=== PATIENT | female | born 1970 | race African-American/Black ===

== ENCOUNTER 2018-03-08 11:28 | Observation (INO) | payer SELFPAY ==
[2018-03-08 12:02] LABS: #Eosinphils 0.1 thou/uL (0.0-0.7); #Lymphocytes 1.4 thou/uL (1.20-3.40); #Monocytes 0.5 thou/uL (0.11-0.59); %Basophils 0.9 % (0.0-1.0); %Eosinophils 1.9 % (0.0-10.0); %Monocytes 11.6 % (0.0-10.0); %Neutrophils 50.5 % (42.0-75.0); Hemoglobin 14.3 g/dL (12.0-16.0); Mean Corpuscular HGB CONC 33.4 g/dL (32.0-36.0); Mean Corpuscular Hemoglobin 30.7 pg (27.0-31.0); Mean Platelet Volume 7.7 fL (7.4-10.4); Platelet Count 232 thou/uL (130-400); RBC Distribution Width 12.2 % (11.5-14.5); Red Blood Cell (RBC) Count 4.67 mill/uL (4.20-5.40)
[2018-03-08] MEDS ORDERED: Nitroglycerin 2% Ointment 1 INCH/1 GM Packet ONE (12:02)
[2018-03-08 12:20] LABS: ALT (SGPT) 20 U/L (8-55); AST (SGOT) 22 U/L (5-34); Albumin 4.2 g/dL (3.5-5.0); Alkaline Phosphatase 75 U/L (40-150); Anion Gap 13 mmol/L (10-20); BUN (Urea Nitrogen) 17 mg/dL (7.0-18.7); Bilirubin, Total 0.4 mg/dL (0.2-1.2); CK (CPK) 95 U/L (29-168); Calc. Creatinine Clearance 0 mL/min (70-130); Carbon Dioxide 25 mmol/L (22-29); Chloride 106 mmol/L (98-107); Estimated GFR-MDRD 65; Globulin 3.2 g/dL (2.4-3.5); Glucose 99 mg/dL (70-105); Lipase 30 U/L (8-78); Potassium 4.5 mmol/L (3.5-5.1); Protein, Total 7.4 g/dL (6.0-8.3); Sodium 139 mmol/L (136-145)
[2018-03-08 12:24] LABS: CKMB 1.3 ng/mL (0-6.6); Troponin I Less than 0.010 ng/mL (< 0.028)
--- NOTE | 2018-03-08 12:31 | RAD ---
CHEST ONE VIEW: HISTORY: Dyspnea. Chest pain. COMPARISON: None. FINDINGS: The cardiac silhouette is magnified by projection. The pulmonary vasculature is unremarkable. The m ediastinum is midline. No lobar consolidation or evidence of pneumothorax. nuclear monitoring technician leads ov erly the chest. IMPRESSION: No active cardiopulmonary abnormalities demonstrated. POS: LEIGHANN
[2018-03-08 14:21] VITALS: BMI 26.5
[2018-03-08] MEDS ORDERED: Acetaminophen 325 MG TAB PO PRN (14:30)
[2018-03-08 15:37] LABS: Troponin I Less than 0.010 ng/mL (< 0.028)
[2018-03-08] MEDS ORDERED: Calcium Carbonate 500 MG ChewTAB PO PRN (17:03)
[2018-03-08] MEDS ORDERED: Nitroglycerin 0.4 MG TAB (25 Tab Bottle) PO PRN (17:04)
[2018-03-08] MEDS ORDERED: Nicotine 21 MG PATCH TD PRN (17:18)
[2018-03-08] MEDS ORDERED: Amlodipine 5 MG TAB PO SCH (17:30)
[2018-03-08 18:33] LABS: Troponin I Less than 0.010 ng/mL (< 0.028)
[2018-03-08] MEDS: Famotidine 20 MG TAB PO SCH (20:55)
--- NOTE | 2018-03-08 23:50 | HP ---
DATE OF SERVICE: 03/08/2018 CHIEF COMPLAINT: Chest pain. HISTORY OF PRESENT ILLNESS: This is a 47-year-old female with history of hypertension who is not currently on medications, GERD, anxiety, bipolar disorder, schizophrenia also not on medication, who presents to the emergency room complaining of chest pain. Patient reports that occurred around 10:00 last night, located in the lower sternum and to the left side with radiation to her right arm. She describes it as sharp and intermittent, lasting a few seconds, resolving and then returning. She states that she fell asleep and did not wake up with pain this morning. She denies any medications taken for this, denies any prior history, denies any shortness of breath, nausea, or vomiting. She did have a headache last night that also resolved this morning. In the emergency room, the patient received aspirin 324 mg, 1 inch of nitro paste, 500 mL of normal saline then Hospitalist called for admission. ALLERGIES: AMPICILLIN. CURRENT MEDICATIONS: None. PAST MEDICAL HISTORY: 1. Hypertension, has not been on medication for years and previously was on clonidine when she was in alf. 2. Gastroesophageal reflux disease. 3. History of crack cocaine abuse. She reports being clean for 6 months. 4. Anxiety. 5. Bipolar disorder. 6. Schizophrenia. SOCIAL HISTORY: The patient smokes 1 pack per day, uses alcohol occasionally, and again has been 6 months clean from crack cocaine. Surrogate decision maker is her , Jarvis and FULL CODE. FAMILY HISTORY: She denies any heart problems that run in the family. REVIEW OF SYSTEMS: Positive for headache as well as reflux symptoms, palpitations that are intermittent and present currently. Negative for any problems with her vision, any headache now. All remaining review of systems are reviewed and negative. PHYSICAL EXAMINATION: VITAL SIGNS: Blood [id number]/84, temperature 97.9, pulse 96, respirations 18 , saturations 93% on room air. GENERAL: Awake, alert, responsive, in no apparent distress, able to speak in full sentences. HEENT: Pupils equal, round, reactive to light. Extraocular movements intact. Oral mucosa is pink and moist. NECK: Supple, nontender. LYMPHATICS: No palpable cervical or supraclavicular lymphadenopathy. LUNGS: Clear to auscultation bilateral. No audible wheezing, rhonchi, or rales. HEART: Normal S1, S2, regular rate and rhythm, no audible murmurs. ABDOMEN: Soft with present bowel sounds. Nontender, nondistended. EXTREMITIES: No edema. SKIN: No rashes. NEUROLOGIC: No focal deficits. PSYCHIATRIC: Euthymic, linear, logical, goal-directed thought process. LABORATORY DATA: 1. CBC: 4, 14.3, 43, 232. 2. Chemistry: 139, 4.5, 106, 25, 17, 0.92. 3. LFTs negative. 4. Troponin x2 negative. 5. BNP 59.3. EKG sinus rhythm, normal axis, normal intervals, no ST changes, present LVH. Chest x-ray personally reviewed negative for acute change. IMPRESSION: 1. Atypical chest pain, patient with two cardiac risk factors of hypertension and tobacco. 2. Hypertension, untreated. 3. Gastroesophageal reflux, untreated. 4. Tobacco abuse. 5. History of crack cocaine use. 6. Anxiety, bipolar disorder, and schizophrenia, not on treatment. PLAN: 1. Observation status in the hospital. 2. Telemetry, daily aspirin, and nuclear medicine stress test. 3. Patient does not have a primary care provider, nor health insurance. I recommend that she is on antihypertensives and will start some amlodipine while here. She will need follow up with a primary care provider to evaluate her blood pressure and adjust as needed. We will start with a low dose to ensure she tolerates it. We will request the case monitor assist with resources to lower cost clinics. 4. Nicotine patch. Nicotine replacement if needed. 5. Deep venous thrombosis prophylaxis not indicated. She is ambulatory. We will start famotidine for her reflux symptoms. 6. Gastrointestinal prophylaxis not indicated. CODE STATUS: FULL. Surrogate decision maker is , Jarvis. Reviewed the plan of the care with the patient, no questions or further needs at end of evaluation. CHAPIN
[2018-03-09 05:49] LABS: Cardiac Risk 2.5 (Less than 4.5)
[2018-03-09] MEDS ORDERED: Amlodipine 5 MG TAB PO SCH (09:00)
[2018-03-09] MEDS ORDERED: Aspirin 325 MG TAB PO SCH (09:00)
[2018-03-09] MEDS: Famotidine 20 MG TAB PO SCH (11:54)
[2018-03-09 15:55] VITALS: BP 118/67; TEMP 98.1
--- NOTE | 2018-03-09 16:40 | NM ---
RADIONUCLIDE STRESS REST MYOCARDIAL PERFUSION SCAN WITH CT ATTENUATION CORRECTION AND SPECT IMAGING LEFT VENTRICULAR WALL MOTION EVALUATION AND EJECTION FRACTION 03/09/18 HISTORY: Chest pain. FINDINGS: Bro protocol. Total test time 10 minutes, 8 seconds. There is homogeneous uptake of radiotracer throughout the left ventricular myocardium. No focal perfu andrea defect or reversibility. QGS analysis of gated SPECT images shows no focal wall motion abnormalities. TID = 0.9. LHR = 37%. Left ventricular ejection fraction is calculated at 61%. IMPRESSION: Normal myocardial perfusion scan. Normal LVEF. POS: JUDY
--- NOTE | 2018-03-10 02:03 | DIS ---
DATE OF ADMISSION: 03/08/2018 DATE OF DISCHARGE: 03/09/2018 PROCEDURE PERFORMED: Nuclear medicine stress test, which was normal. FINAL DIAGNOSES: 1. Atypical chest pain with negative cardiac evaluation. 2. Hypertension. 3. Gastroesophageal reflux disease. 4. History of anxiety, bipolar disorder, and schizophrenia; not currently on medications. 5. History of crack cocaine abuse. MEDICATIONS: Reconciled at discharge. New medication is Norvasc 5 mg tablet, 1 /2 tablet p.o. daily, prescription for 15 tablets. FOLLOWUP: Follow up with the [facility] for evaluation of blood pressure and adjustment of medications, as well as any other health complaints or concerns. HISTORY OF PRESENT ILLNESS: Ms. Mcnamara is a 47-year-old female with the above medical problems, who presented to the emergency room the morning following having chest pain that was located in the lower left side with radiation to her right arm. She denied any precipitating or relieving factors. Described it as sharp and intermittent, lasting a few seconds and then returning. She was placed in observation status for further evaluation. HOSPITAL COURSE: The patient was monitored on telemetry and maintained a sinus rate with PVCs and occasional bigeminy. She had 3 negative troponins; normal cholesterol panel; and underwent nuclear stress test today, which was negative on both the EKG portion as well as the nuclear medicine portion. No focal defects on the nuclear medicine images and an EF estimated at 61%. She has not had a return of chest pain and is overall feeling well and meets criteria for discharge. Due to a long history of hypertension and LVH on her EKG, she was started on amlodipine at low dose. This medication was chosen as the patient has been away from medical care, and it does not require monitoring with blood work. Consideration was made to start a beta tessie, for symptomatic PVC's, however this will be deferred to the outpatient setting as pt will require close follow up to ensure no change with sobriety from history of substance abuse. DIET: Regular. ACTIVITY: No restrictions. PHYSICAL EXAMINATION: VITAL SIGNS: On day of discharge, blood pressure 118/67, temperature 98.1, pulse 68, respirations 12, saturation 97% on room air. GENERAL: She is awake, alert, responsive, in no apparent distress, able to speak in full sentences. LUNGS: Clear to auscultation bilateral. HEART: Normal S1, S2. Regular rate and rhythm. No audible murmurs. ABDOMEN: Soft with present bowel sounds. Nontender, nondistended. EXTREMITIES: No edema. GUERRERO FINDINGS AND TEST RESULTS: 1. CBC: 4, 14.3, 43, 232. 2. Chemistry: 139, 4.5, 106, 25, 17, 0.92, 99. 3. LFTs negative. 4. Troponin x3 negative. 5. Triglycerides 49, cholesterol 183, LDL 99, HDL 74. Chest x-ray performed 03/08/2018, negative for any acute process. Nuclear medicine treadmill stress test, negative GXT, no focal defects, TID 0.9 , EF estimated at 61%, and an overall normal study. Reviewed with the patient, the test results, the importance of followup and having a primary care provider, and reasons for return to the hospital. She demonstrates understanding. Total time coordinating discharge is 30 minutes. CHAPIN
--- NOTE | 2018-03-12 14:04 | STRESS ---
Acquisition Time: 2018-03-09 09:46:00 Total Exercise Time: 00:10:08 Test Indications: CHEST PAIN Medications: Protocol: [place] Max HR: 146 BPM 85% of Pred: 171 BPM Max BP: 182/080 mmHG Max Work Load: 13.4 METS RESTING ECG: NORMAL SINUS RHYTHM AT 71 BPM SYMPTOMS: DYSPNEA ON EXERTION ECTOPY: RARE PVC'S ECG STRESS: NO SIGNIFICANT CHANGES INTERPRETATION: NEGATIVE GXT/AWAIT NUCLEAR IMAGES FOR DEFINITIVE DIAGNOSIS Confirmed by KB RODRÍGUEZ ([id number]), editor sound LUISANA MERCER ([id number]) on 03/12/2018 2:03:15 PM Referred By: MD Leti HARDY Confirmed By:KB RODRGÍUEZ
== END 2018-03-09 17:27 | disposition home or self-care (01) ==
LOC: ERS 11:28 → 2SW 13:51
PROVIDERS: ADMIT Family Medicine; ATTEND Family Medicine
DX: R07.89 Other chest pain (principal); K21.9 Gastro-esophageal reflux disease without esophagitis; F41.9 Anxiety disorder, unspecified; F31.9 Bipolar disorder, unspecified; F20.9 Schizophrenia, unspecified; F14.11 Cocaine abuse, in remission; I10 Essential (primary) hypertension; F17.210 Nicotine dependence, cigarettes, uncomplicated; Z88.0 Allergy status to penicillin
CPT/HCPCS: 36415; 71045; 78452; 80053; 80061; 82550; 82553; 83690; 83880; 84484; 85025; 90471; 90732; 93005; 93017; 94760; 96360; A9500; G0009; G0378